=== PATIENT | female | born 1985 | race Caucasian/White ===

== ENCOUNTER 2019-07-24 19:08 | Emergency (ER) | payer SELFPAY ==
[2019-07-24 19:47] LABS: Bilirubin Negative (Negative); Blood, Urine Negative (Negative); Clarity Cloudy (Clear); Glucose, Urine (Dipstick) Negative (Negative); Leukocyte Negative (Negative); Nitrite Negative (Negative); Pregnancy Test - Urine (BHCG) Negative (Negative); Pregu Control Background? CLEAR/WHITE (CLR/WHITE); Pregu Control Bar Appear? YES (CONTROL BAR); Protein, Urine (Dipstick) Negative (Neg-Trace); Urobilinogen 0.2 mg/dL (Less than 2)
[2019-07-25 15:43] LABS: HIV (1/2) Antibody/Antigen Non-Reactive (NonReactive); HIV 1/2 INDEX 0.11 S/CO (<1.00)
[2019-07-27 20:51] LABS: Chlam.trachomatis by PCR,Urine Not Detected (NotDetected)
== END 2019-07-24 20:19 | disposition home or self-care (01) ==
LOC: MADERS 19:08
DX: N89.8 Other specified noninflammatory disorders of vagina (principal); F41.9 Anxiety disorder, unspecified; F31.9 Bipolar disorder, unspecified; F17.210 Nicotine dependence, cigarettes, uncomplicated
CPT/HCPCS: 81003; 81025; 87389; 87480; 87491; 87510; 87591; 87660; 99283